=== PATIENT | female | born 1945 | race Caucasian/White ===

== ENCOUNTER 2017-01-22 08:14 | Day surgery (SDC) | payer MEDICARE, OTHER ==
[2017-01-18 11:52] LABS: HEMATOCRIT 42.4 % (36.0-48.0); HEMOGLOBIN 13.9 g/dL (12.0-16.0)
--- NOTE | ~2017-01-22 | OP ---
Record Of Operation [facility] [address] [place]. [address] NAME: TATI SILVA : 43 [place] [facility] [place] [id number] AGE: 71 ADM/REG DATE : 01/22/17 MR#: [id number] REPORT SERV DATE: 01/22/17 DICTATED BY: ROSA ELENA HO JR. DATE: 01/22/17 REPORT STATUS : Draft TRANSCRIBED BY: JUS DATE: 01/22/17 DATE OF PROCEDURE: 01/22/2017 SURGEON: Rosa Elena Ho M.D. RES COUNSELOR: Jessica Garcia. PROCEDURE: Hemorrhoidectomy (internal and external). PREOPERATIVE DIAGNOSIS: Hemorrhoid. POSTOPERATIVE DIAGNOSIS: Hemorrhoid. ANESTHESIA: General. INDICATIONS: The patient has presented with history of hemorrhoid disease characterized by pain, and some bleeding, and prolapse. This has been managed conservatively with progression of symptoms and exploration and surgery was indicated. FINDINGS: With the patient in prone sinai-knife position, the area was examined, there was hemorrhoid tissue present at 5 o'clock with skin tag and prolapse. This area was resected completely. There was no other significant hemorrhoidal tissue to other sites and no other significant abnormality on rectal exam or anoscopy. DESCRIPTION OF PROCEDURE: With adequate general anesthesia, the patient was placed in the prone sinai-knife position. The buttock was spread, the rectum was dilated, and was prepped and draped sterilely. The anoscope was introduced with the above-noted findings. Then, a stay suture of 3-0 Monocryl was placed at the base of the hemorrhoid and an elliptical incision was outlined to incorporate the mucosa and this along with the underlying hemorrhoid tissue was excised. This was submitted to Pathology. The defect was then closed with a running locking suture of 3-0 Monocryl and additionally with cautery hemostasis was provided. Then, a Gel-Foam Nupercaine pack was placed along with a sterile pad. The patient left the operating room in satisfactory condition. ESTIMATED BLOOD LOSS: 30 mL. WANDA/JUS Rosa Elena Ho Jr., M.D. / [id number] CC: Record Of Operation [place] [address] [place]. [address] NAME: TATI SILVA : 43 [place] [facility] [place] [id number] AGE: 71 ADM/REG DATE : 01/22/17 MR#: [id number] REPORT SERV DATE: 01/22/17 DICTATED BY: ROSA ELENA HO JR. DATE: 01/22/17 REPORT STATUS : Draft TRANSCRIBED BY: MODL DATE: 01/22/17 Eliezer Buchanan Jr., TYE
[~2017-01-22 08:14] MED LIST: LIPITOR80 MG PO; SEVERAL VITAMINS; TRAZODONE150 MG PO; WELLXL150 PO
== END 2017-01-22 16:54 | disposition home or self-care (01) ==
LOC: SDC 08:14
PROVIDERS: Specialist
PROC: 06BY0ZC Excision of Hemorrhoidal Plexus, Open Approach (ICD-10-PCS; principal; 2017-01-22 10:00)
DX: K64.8 Other hemorrhoids (principal); E78.5 Hyperlipidemia, unspecified; E78.00 Pure hypercholesterolemia, unspecified; F32.9 Major depressive disorder, single episode, unspecified; Z98.51 Tubal ligation status; Z98.890 Other specified postprocedural states; Z98.42 Cataract extraction status, left eye; Z96.1 Presence of intraocular lens; Z90.13 Acquired absence of bilateral breasts and nipples; Z92.21 Personal history of antineoplastic chemotherapy; Z98.82 Breast implant status; Z91.040 Latex allergy status; Z87.891 Personal history of nicotine dependence
CPT/HCPCS: 85014; 85018; 88304; 93005; A9270-GY; J0690; J1200; J2175; J2270; J2405; J2710; J3010